=== PATIENT | male | born 1955 | race Caucasian/White ===

== ENCOUNTER 2017-09-21 03:20 | Inpatient (IN) | payer OTHER ==
[2017-09-21] VITALS (10 sets, daily range): BP systolic 111–177; BP diastolic 55–84; PULSE 53–78; RESP 18–24; TEMP 97.5–99.2; O2SAT 93–100
[~2017-09-21] VITALS: Ht 195.6 cm; Wt 205.9 kg
[~2017-09-21 03:20] MED LIST: ACET325 PO; CEREFOLIN PO; CIPR500T2 PO; HALO1 PO; KLOR20TA6 PO; LANO0.2510 PO; LOPE2 PO; LORA-392 PO; MAGNESIUM OXIDE PO; MILKSUS5 PO; RISP2TAB2 PO; RIVA9.5T TD; TAB-TAB PO; THIA200P PO; VITA500T10 PO; ZINC220 PO; [UNRECOGNIZED DRUG - CODE] PO
[2017-09-21] MEDS ORDERED: SODIUM CHLORIDE 0.9% FLUSH 10 ML FLUSH IVF PRN (03:45)
--- NOTE | 2017-09-21 03:48 | PD ---
HPI Chief Complaint: Complaint Time Seen by Provider: 03:45 Travel History International Travel<30 days: No Contact w/Intl Traveler<30days: No Traveled to known affect area: No History of Present Illness HPI 61-year-old male presents to the emergency department by EMS transport from local assisted living facility for complaint of lower extremity swelling with scrotal edema and penile edema. Patient has history of COPD atrial fibrillation morbid obesity hypertension and schizophrenia. Patient denies having history of diabetes. Patient admits to occasional alcohol use and tobacco use. Patient states that he has noted swelling in the groin area for the past week and finally mentioned it to the caregivers at his facility. Patient was sent immediately to the emergency department for further evaluation. Patient does not report any issues with urinating or having bowel movements. PFSH Past Medical History Narrative Medical Anxiety atrial fibrillation hypertension schizophrenia tobacco use occasional alcohol use; nursing notes reviewed Atrial Fibrillation: Yes Anxiety: Yes GERD: Yes Hypertension: Yes Schizophrenia: Yes Social History Alcohol Use: Yes (Occ) Tobacco Use: Yes (<1/2 PPD) Substance Use: No Allergies-Medications (Allergen,Severity, Reaction): Coded Allergies: No Known Allergies (Verified Allergy, Unknown, 09/21/17) Reported Meds & Prescriptions Reported Meds & Active Scripts Active Reported Tylenol (Acetaminophen) 325 Mg Tab 650 Mg PO Q4H PRN Aspirin 81 Mg Chew 81 Mg CHEW DAILY Milk of Magnesia Liq (Magnesium Hydroxide) 400 Mg/5 Ml Susp 60 Ml PO DAILY PRN Multivitamins (Multiple Vitamin) 1 Cap Cap 1 Tab PO DAILY Tums (Calcium Carbonate (Antacid)) 500 Mg Chew 500 Mg CHEW PRN Aplisol (Tuberculin Ppd) 5 Tub. Unit/0.1 Ml Inj Ranitidine 75 (Ranitidine HCl) 75 Mg Tab 75 Mg PO DAILY Take 30 to 60 minutes before eating food or drinking beverages that cause heartburn. Risperdal (Risperidone) 1 Mg Tab 1 Mg PO DAILY Trazodone (Trazodone HCl) 50 Mg Tab 50 Mg PO HS Wellbutrin Xl 24 HR (Bupropion HCl) 300 Mg Tab 300 Mg PO DAILY Review of Systems Except as stated in HPI: all other systems reviewed are Neg General / Constitutional: No: Fever, Chills HENT: No: Congestion Cardiovascular: No: Chest Pain or Discomfort Respiratory: Positive: Shortness of Breath Gastrointestinal: No: Vomiting, Abdominal Pain Genitourinary: Positive: Other (Scrotal and penile edema), No: Dysuria Musculoskeletal: Positive: Edema Skin: No Rash Neurologic: No: Weakness Psychiatric: Positive: Anxiety Hematologic/Lymphatic: No: Lymph Node Enlargement Physical Exam Narrative GENERAL: Morbidly obese male in no acute respiratory distress. SKIN: Warm and dry. HEAD: Normocephalic. EYES: No scleral icterus. No injection or drainage. NECK: Supple, trachea midline. No JVD or lymphadenopathy. CARDIOVASCULAR: Regular rate and rhythm without murmurs, gallops, or rubs. RESPIRATORY: Breath sounds equal bilaterally. No accessory muscle use. GASTROINTESTINAL: Abdomen soft, non-tender, nondistended. MUSCULOSKELETAL: No cyanosis, scrotal and bilateral lower extremity pitting edema with erythema increased warmth but no crepitus no eschar no ecchymosis and nontender to palpation. BACK: Nontender without obvious deformity. No CVA tenderness. Data Data Last Documented VS Vital Signs Date Time Temp Pulse Resp B/P (MAP) Pulse Ox O2 Delivery O2 Flow Rate FiO2 09/21/17 04:20 100 Room Air 09/21/17 04:20 09/21/17 03:37 18 09/21/17 03:37 98.5 74 Orders Orders Complete Blood Count With Diff (09/21/17 03:45) Comprehensive Metabolic Panel (09/21/17 03:45) B-Type Natriuretic Peptide (09/21/17 03:45) Act Partial Throm Time (Ptt) (09/21/17 03:45) Prothrombin Time / Inr (Pt) (09/21/17 03:45) Magnesium (Mg) (09/21/17 03:45) Ckmb (Isoenzyme) Profile (09/21/17 03:45) Troponin I (09/21/17 03:45) Urinalysis - C+S If Indicated (09/21/17 03:45) Blood Culture (09/21/17 03:45) Iv Access Insert/Monitor (09/21/17 03:45) Electrocardiogram (09/21/17 03:45) Ecg Monitoring (09/21/17 03:45) Oximetry (09/21/17 03:45) Oxygen Administration (09/21/17 03:45) Chest, Single Ap (09/21/17 03:45) Sodium Chloride 0.9% Flush (Ns Flush) (09/21/17 03:45) Us Leg Venous Doppler Bilat (09/21/17 ) Digoxin (09/21/17 04:04) CKMB (09/21/17 04:04) CKMB% (09/21/17 04:04) Admit To Inpatient (09/21/17 ) Vital Signs (Adult) Q4H (09/21/17 05:31) Activity Oob Ad Mamta (09/21/17 05:31) Auto Rebuilder / Telemetry .CONTINUOUS (09/21/17 05:31) Intake + Output CAREY.QSHIFT (09/21/17 05:31) Diet Heart Healthy (09/21/17 Breakfast) Sodium Chlor 0.9% 1000 Ml Inj (Ns 1000 M (09/21/17 05:31) Sodium Chloride 0.9% Flush (Ns Flush) (09/21/17 05:45) Sodium Chloride 0.9% Flush (Ns Flush) (09/21/17 09:00) Acetaminophen (Tylenol) (09/21/17 05:45) Ondansetron Inj (Zofran Inj) (09/21/17 05:45) Basic Metabolic Panel (Bmp) (09/22/17 06:00) Complete Blood Count With Diff (09/22/17 06:00) Creatine Kinase (Cpk) (09/21/17 16:00) Pt Request For Service (09/21/17 05:31) Case Management Consult (09/21/17 05:31) Naloxone Inj (Narcan Inj) (09/21/17 05:45) Inpatient Certification (09/21/17 ) Heparin Inj (Heparin Inj) (09/21/17 06:00) Echo 2d Comp With Doppler (09/21/17 ) Admit Order (Ed Use Only) (09/21/17 ) Auto Rebuilder / Telemetry CAREY.Q8H (09/21/17 05:42) Activity Bed Rest (09/21/17 05:42) Notify Dr: Other (09/21/17 05:42) Labs Laboratory Tests Test 09/21/17 04:04 09/21/17 04:14 White Blood Count 17.0 TH/MM3 Red Blood Count 4.73 MIL/MM3 Hemoglobin 13.1 GM/DL Hematocrit 39.4 % Mean Corpuscular Volume 83.3 FL Mean Corpuscular Hemoglobin 27.7 PG Mean Corpuscular Hemoglobin Concent 33.3 % Red Cell Distribution Width 15.8 % Platelet Count 300 TH/MM3 Mean Platelet Volume 8.1 FL Neutrophils (%) (Auto) 87.2 % Lymphocytes (%) (Auto) 4.6 % Monocytes (%) (Auto) 7.9 % Eosinophils (%) (Auto) 0.1 % Basophils (%) (Auto) 0.2 % Neutrophils # (Auto) 14.8 TH/MM3 Lymphocytes # (Auto) 0.8 TH/MM3 Monocytes # (Auto) 1.3 TH/MM3 Eosinophils # (Auto) 0.0 TH/MM3 Basophils # (Auto) 0.0 TH/MM3 CBC Comment DIFF FINAL Differential Comment Prothrombin Time 11.5 SEC Prothromb Time International Ratio 1.1 RATIO Activated Partial Thromboplast Time 28.8 SEC Blood Urea Nitrogen 31 MG/DL Creatinine 1.63 MG/DL Random Glucose 134 MG/DL Total Protein 7.1 GM/DL Albumin 3.0 GM/DL Calcium Level 8.5 MG/DL Magnesium Level 2.1 MG/DL Alkaline Phosphatase 96 U/L Aspartate Amino Transf (AST/SGOT) 45 U/L Alanine Aminotransferase (ALT/SGPT) 33 U/L Total Bilirubin 1.2 MG/DL Sodium Level 137 MEQ/L Potassium Level 4.2 MEQ/L Chloride Level 105 MEQ/L Carbon Dioxide Level 23.2 MEQ/L Anion Gap 9 MEQ/L Estimat Glomerular Filtration Rate 43 ML/MIN Total Creatine Kinase 1121 U/L Creatine Kinase MB 9.6 NG/ML Creatine Kinase MB % 0.9 % Troponin I LESS THAN 0.02 NG/ML B-Type Natriuretic Peptide 55 PG/ML Digoxin Level 0.1 NG/ML Urine Color YELLOW Urine Turbidity CLEAR Urine pH 5.0 Urine Specific [place] 1.021 Urine Protein NEG mg/dL Urine Glucose (UA) NEG mg/dL Urine Ketones NEG mg/dL Urine Occult Blood NEG Urine Nitrite NEG Urine Bilirubin NEG Urine Urobilinogen LESS THAN 2.0 MG/DL Urine Leukocyte Esterase NEG Urine WBC 1 /hpf Urine Squamous Epithelial Cells <1 /hpf Urine Mucus FEW /lpf Microscopic Urinalysis Comment CULT NOT INDICATED MDM Medical Decision Making Medical Screen Exam Complete: Yes Emergency Medical Condition: Yes Medical Record Reviewed: Yes Interpretation(s) EKG: Atrial fibrillation controlled ventricular rate of [address] elevation or injury pattern age-indeterminate QS anteriorly Last Impressions Chest X-Ray 09/21/17 0345 Signed Impressions: Service Date/Time: Thursday, September 21, 2017 04:03 - CONCLUSION: 1. Cardiomegaly with pulmonary vascular congestion. 2. Hazy opacity throughout the right lung may reflect layering pleural effusion. 3. Mild left lung base airspace disease, presumably atelectasis. Jonah Yu MD Lower Extremity Ultrasound 09/21/17 0000 Signed Impressions: Service Date/Time: Thursday, September 21, 2017 04:23 - CONCLUSION: 1. No sonographic evidence for lower extremity DVT. Jonah Yu MD CBC & BMP Diagram 09/21/17 04:04 Total Protein 7.1, Albumin 3.0 L, Calcium Level 8.5, Magnesium Level 2.1, Alkaline Phosphatase 96, Aspartate Amino Transf (AST/SGOT) 45 H, Alanine Aminotransferase (ALT/SGPT) 33, Total Bilirubin 1.2 H Vital Signs Date Time Temp Pulse Resp B/P (MAP) Pulse Ox O2 Delivery O2 Flow Rate FiO2 09/21/17 04:20 100 Room Air 09/21/17 04:20 100 Room Air 09/21/17 03:37 18 09/21/17 03:37 98.5 74 20 142/65 (90) 100 Room Air 09/21/17 03:33 98.5 Differential Diagnosis Scrotal edema, anasarca, phimosis, paraphimosis, cellulitis, CHF, ACS, renal failure, hypoproteinemia, anemia, DVT; no crepitus or eschar to suggest necrotizing fasciitis Narrative Course IV access obtained specimens collected and sent for resulting imaging studies ordered patient presumptively covered with Lasix diuresis; ultrasound of the lower extremities ordered; EKG is atrial fibrillation with controlled ventricular rate no acute injury pattern change noted. Patient administered broad-spectrum antibiotic after obtaining blood cultures and lactic acid Patient given vancomycin and Zosyn as well as diuresis with Lasix Patient's case discussed with medicine service for admission ongoing IV antibiotics and diuresis Critical Care Narrative Aggregate critical care time was 35 minutes. Time to perform other separately billable procedures was not included in the critical care time. My time did not include minutes spent treating any other patients simultaneously or on activities that did not directly contribute to the patient's treatment. The services I provided to this patient were to treat and/or prevent clinically significant deterioration that could result in: Myocardial infarction, septic shock, I provided critical care services requiring my management, as noted below: Chart data review, documentation time, medication orders and management, vital sign assessments/reviewing monitor data, ordering and reviewing lab tests, ordering and interpreting/reviewing x-rays and diagnostic studies, care of the patient and discussion of the patient with the admitting physicians. Physician Communication Physician Communication discussed with Dr Durham Diagnosis Primary Impression: Cellulitis of scrotum Additional Impressions: Anasarca Renal insufficiency Rhabdomyolysis Atrial fibrillation Admitting Information Admitting Physician Requests: Admit Shauna Gates MD Sep 21, 2017 03:48
[2017-09-21 04:23] LABS: AUTOMATED NEUTROPHIL # 14.8 TH/MM3 (1.8-7.7); BASOPHIL % 0.2 % (0.0-2.0); EOSINOPHIL % 0.1 % (0.0-4.0); HEMATOCRIT 39.4 % (39.0-51.0); HEMOGLOBIN 13.1 GM/DL (13.0-17.0); LYMPH % 4.6 % (9.0-44.0); LYMPHOCYTE # 0.8 TH/MM3 (1.0-4.8); MEAN CELL VOLUME 83.3 FL (80.0-100.0); MEAN CORPUSCULAR HEMOGLOBIN 27.7 PG (27.0-34.0); MEAN CORPUSCULAR HGB CONC 33.3 % (32.0-36.0); MEAN PLATELET VOLUME 8.1 FL (7.0-11.0); MONO % 7.9 % (0.0-8.0); MONOCYTE # 1.3 TH/MM3 (0-0.9); NEUT % 87.2 % (16.0-70.0); PLATELET COUNT 300 TH/MM3 (150-450); RED BLOOD COUNT 4.73 MIL/MM3 (4.50-5.90); RED CELL DISTRIBUTION WIDTH 15.8 % (11.6-17.2)
[2017-09-21 04:27] LABS: BILIRUBIN, URINE NEG (NEG); BLOOD, URINE NEG (NEG); GLUCOSE,URINE NEG (NEG); KETONE, URINE NEG (NEG); MUCUS URINE FEW /lpf (OCC); NITRITE,URINE NEG (NEG); SQUAMOUS EPITHELIAL CELL URINE <1 /hpf (0-5); URINE COLOR YELLOW (YELLW/STRAW); URINE LEUKOCYTE ESTERASE NEG (NEG)
--- NOTE | 2017-09-21 04:29 | RADRPT ---
EXAM DATE/TIME: 09/21/2017 04:03 [facility] COMPARISON: CHEST SINGLE AP, July 17, 2010, 4:52. INDICATIONS : Short of breath. MEDICAL HISTORY : None. SURGICAL HISTORY : None. ENCOUNTER: Initial ACUITY: 1 day PAIN SCORE: Non-responsive. LOCATION: Bilateral chest FINDINGS: Cardiac silhouette is enlarged. Central pulmonary vascularity is indistinct. Mild interstitial promin ence with hazy opacity in the right lung. Mild airspace CZ the left lung base. Remainder of the exam is unchanged. CONCLUSION: 1. Cardiomegaly with pulmonary vascular congestion. 2. Hazy opacity throughout the right lung may reflect layering pleural effusion. 3. Mild left lung base airspace disease, presumably atelectasis. Jonah Yu MD on September 21, 2017 at 4:27 Board Certified Radiologist. This report was verified electronically.
[2017-09-21] MEDS ORDERED: WELLTAB39 PO (04:33)
[2017-09-21] MEDS ORDERED: TYLE325T PO (04:33)
[2017-09-21] MEDS ORDERED: MILKSUS PO (04:33)
[2017-09-21] MEDS ORDERED: TUMS500C CHEW (04:33)
[2017-09-21] MEDS ORDERED: MULTCAP3 PO (04:33)
[2017-09-21] MEDS ORDERED: APLI5INJ2 (04:33)
[2017-09-21] MEDS ORDERED: TRAZ50TA12 PO (04:33)
[2017-09-21] MEDS ORDERED: ASPI-516 CHEW (04:33)
[2017-09-21] MEDS ORDERED: RISP1 PO (04:33)
[2017-09-21] MEDS ORDERED: RANI1TAB5 PO (04:33)
[2017-09-21 04:45] LABS: INTERNATIONAL NORMALIZED RATIO 1.1 RATIO; PROTHROMBIN TIME - PATIENT 11.5 SEC (9.8-11.6)
[2017-09-21 04:55] LABS: AST (GOT) 45 U/L (15-37); BICARBONATE 23.2 MEQ/L (21.0-32.0); BLOOD UREA NITROGEN 31 MG/DL (7-18); CALCIUM 8.5 MG/DL (8.5-10.1); CHLORIDE 105 MEQ/L (98-107); CREATININE 1.63 MG/DL (0.60-1.30); GLOMERULAR FILTRATION RATE 43 ML/MIN (>89); GLUCOSE,RANDOM 134 MG/DL (74-106); MAGNESIUM 2.1 MG/DL (1.5-2.5); SODIUM (NA) 137 MEQ/L (136-145)
[2017-09-21 04:56] LABS: ALT (GPT) 33 U/L (12-78)
[2017-09-21 05:10] LABS: ALKALINE PHOSPHATASE 96 U/L (45-117); DIGOXIN 0.1 NG/ML (0.8-2.0); TOTAL BILIRUBIN ADULT 1.2 MG/DL (0.2-1.0); TOTAL PROTEIN 7.1 GM/DL (6.4-8.2); TROPONIN I LESS THAN 0.02 NG/ML (0.02-0.05)
--- NOTE | 2017-09-21 05:20 | RADRPT ---
EXAM DATE/TIME: 09/21/2017 04:23 [facility] COMPARISON: No previous studies available for comparison. INDICATIONS : Bilateral leg swelling. MEDICAL HISTORY : Hypertension. Gastroesophageal reflux disease. Atrial fibrillation. Schizophrenia. Anxiety. SURGICAL HISTORY : ENCOUNTER: Initial ACUITY: 1 day PAIN SCORE: Non-responsive LOCATION: Bilateral legs. TECHNIQUE: Venous ultrasound of the left and right leg was performed from the inguinal ligament to the proximal calf. Real-time, color Doppler and spectral tracing, compression and augmentation techniques were us ed. FINDINGS: RIGHT LEG: There is normal compressibility of the deep venous system from the inguinal region to the proximal ca lf. No echogenic clot is seen in the lumen of the common femoral, femoral, popliteal, and posterior tibial veins. There is a normal response of the venous system to proximal and distal augmentation an d respiration. LEFT LEG: There is normal compressibility of the deep venous system from the inguinal region to the proximal ca lf. No echogenic clot is seen in the lumen of the common femoral, femoral, popliteal, and posterior tibial veins. There is a normal response of the venous system to proximal and distal augmentation an d respiration. CONCLUSION: 1. No sonographic evidence for lower extremity DVT. Jonah Yu MD on September 21, 2017 at 5:18 Board Certified Radiologist. This report was verified electronically.
[2017-09-21] MEDS ORDERED: SODIUM CHLORIDE 0.9% FLUSH 10 ML FLUSH IV FLUSH PRN (05:45)
[2017-09-21] MEDS ORDERED: NALOXONE HCL 0.4 MG/ML AMP IV PUSH PRN (05:45)
[2017-09-21] MEDS ORDERED: ONDANSETRON HCL 4 MG/2 ML VIAL IVP PRN (05:45)
[2017-09-21] MEDS ORDERED: ACETAMINOPHEN 325 MG TAB PO PRN (05:45)
[2017-09-21] MEDS ORDERED: FUROSEMIDE 100 MG/10 ML VIAL IV PUSH ONE (06:00)
[2017-09-21] MEDS ORDERED: VANCOMYCIN INJ 1,500 MG in SODIUM CHLORID 0.9% 500 ML INJ 500 ML IV ONE (06:00)
[2017-09-21] MEDS ORDERED: PIPERACIL-TAZO 4.5 GM PREMIX 100 ML IV ONE (06:00)
[2017-09-21] MEDS: HEPARIN SODIUM - SQ 10,000 UNITS/ML VIAL SQ SCH ×3 (06:09→22:16)
[2017-09-21] MEDS: SODIUM CHLOR 0.9% 1000 ML INJ 1,000 ML IV SCH ×2 (06:13→15:48)
[2017-09-21] MEDS: SODIUM CHLORIDE 0.9% FLUSH 10 ML FLUSH IV FLUSH SCH ×2 (09:00→22:17)
--- NOTE | 2017-09-21 14:38 | HHI.HP ---
[facility] Phys[facility] Unknown Admission Diagnosis anasarca/chf; cellulitis; atrial fibrillation Diagnoses: Chief Complaint: scrotal sweling Travel History International Travel<30 Days: No Contact w/Intl Traveler <30 Da: No Traveled to Known Affected Are: No History of Present Illness 61-year-old male with PMH of HTN, Afib, schizophrenia presents to the emergency department by EMS transport from local assisted living facility for complaint of lower extremity swelling with scrotal edema and penile edema. Patient has history of COPD atrial fibrillation morbid obesity hypertension and schizophrenia. Patient denies having history of diabetes. Patient admits to occasional alcohol use and tobacco use. Patient states that he has noted swelling in the groin area for the past week and finally mentioned it to the caregivers at his facility. Patient was sent immediately to the emergency department for further evaluation. Patient does not report any issues with urinating or having bowel movements. Patient is sleepy and is a very poor Review of Systems ROS Limitations: Clinical Condition, Poor Historian Except as stated in HPI: all other systems reviewed are Neg Past Family Social History Past Medical History Anxiety atrial fibrillation hypertension schizophrenia tobacco use occasional alcohol use; nursing notes reviewed Past Surgical History Abdominal surgery unspecified Reported Medications Last Impressions Chest X-Ray 09/21/17 0345 Signed Impressions: Service Date/Time: Thursday, September 21, 2017 04:03 - CONCLUSION: 1. Cardiomegaly with pulmonary vascular congestion. 2. Hazy opacity throughout the right lung may reflect layering pleural effusion. 3. Mild left lung base airspace disease, presumably atelectasis. Jonah Yu MD Lower Extremity Ultrasound 09/21/17 0000 Signed Impressions: Service Date/Time: Thursday, September 21, 2017 04:23 - CONCLUSION: 1. No sonographic evidence for lower extremity DVT. Jonah Yu MD Allergies: Coded Allergies: No Known Allergies (Verified Allergy, Unknown, 09/21/17) Family History Heart problems runs in family Social History Tobacco use 1/2 ppd Occasional EtOH use No illicit drug use Physical Exam Vital Signs Vital Signs Date Time Temp Pulse Resp B/P (MAP) Pulse Ox O2 Delivery O2 Flow Rate FiO2 09/21/17 12:00 99.2 75 21 113/57 (75) 95 09/21/17 09:45 98.1 78 20 122/79 (93) 98 09/21/17 09:20 09/21/17 08:38 98.4 75 24 177/84 (115) 99 2.00 09/21/17 06:15 75 18 145/79 (101) 96 2.00 09/21/17 04:20 100 Room Air 09/21/17 04:20 100 Room Air 09/21/17 03:37 18 09/21/17 03:37 98.5 74 20 142/65 (90) 100 Room Air 09/21/17 03:33 98.5 Physical Exam GENERAL: Morbidly obese male in no acute respiratory distress. SKIN: No rashes, ecchymoses or lesions. Cool and dry. Scrotal and bilateral lower extremity pitting edema with erythema increased warmth but no crepitus no eschar no ecchymosis and nontender to palpation. HEAD: Atraumatic. Normocephalic. No temporal or scalp tenderness. EYES: Pupils equal round and reactive. Extraocular motions intact. No scleral icterus. No injection or drainage. ENT: Nose without bleeding, purulent drainage or septal hematoma. Throat without erythema, tonsillar hypertrophy or exudate. Uvula midline. Airway patent. NECK: Trachea midline. No JVD or lymphadenopathy. Supple, nontender, no meningeal signs. CARDIOVASCULAR: Regular rate and rhythm without murmurs, gallops, or rubs. RESPIRATORY: Clear to auscultation. Breath sounds equal bilaterally. No wheezes , rales, or rhonchi. GASTROINTESTINAL: Abdomen soft, non-tender, nondistended. No hepato-splenomegaly , or palpable masses. No guarding. MUSCULOSKELETAL: Extremities without clubbing, cyanosis. No joint tenderness, effusion, or edema noted. No calf tenderness. Negative Homans sign bilaterally. NEUROLOGICAL: Awake and alert. Cranial nerves II through XII intact. Motor and sensory grossly within normal limits. Five out of 5 muscle strength in all muscle groups. Normal speech. Laboratory Laboratory Tests Test 09/21/17 04:04 09/21/17 04:14 09/21/17 08:35 White Blood Count 17.0 Red Blood Count 4.73 Hemoglobin 13.1 Hematocrit 39.4 Mean Corpuscular Volume 83.3 Mean Corpuscular Hemoglobin 27.7 Mean Corpuscular Hemoglobin Concent 33.3 Red Cell Distribution Width 15.8 Platelet Count 300 Mean Platelet Volume 8.1 Neutrophils (%) (Auto) 87.2 Lymphocytes (%) (Auto) 4.6 Monocytes (%) (Auto) 7.9 Eosinophils (%) (Auto) 0.1 Basophils (%) (Auto) 0.2 Neutrophils # (Auto) 14.8 Lymphocytes # (Auto) 0.8 Monocytes # (Auto) 1.3 Eosinophils # (Auto) 0.0 Basophils # (Auto) 0.0 CBC Comment DIFF FINAL Differential Comment Prothrombin Time 11.5 Prothromb Time International Ratio 1.1 Activated Partial Thromboplast Time 28.8 Blood Urea Nitrogen 31 Creatinine 1.63 Random Glucose 134 Total Protein 7.1 Albumin 3.0 Calcium Level 8.5 Magnesium Level 2.1 Alkaline Phosphatase 96 Aspartate Amino Transf (AST/SGOT) 45 Alanine Aminotransferase (ALT/SGPT) 33 Total Bilirubin 1.2 Sodium Level 137 Potassium Level 4.2 Chloride Level 105 Carbon Dioxide Level 23.2 Anion Gap 9 Estimat Glomerular Filtration Rate 43 Total Creatine Kinase 1121 Creatine Kinase MB 9.6 Creatine Kinase MB % 0.9 Troponin I LESS THAN 0.02 B-Type Natriuretic Peptide 55 Digoxin Level 0.1 Urine Color YELLOW Urine Turbidity CLEAR Urine pH 5.0 Urine Specific [place] 1.021 Urine Protein NEG Urine Glucose (UA) NEG Urine Ketones NEG Urine Occult Blood NEG Urine Nitrite NEG Urine Bilirubin NEG Urine Urobilinogen LESS THAN 2.0 Urine Leukocyte Esterase NEG Urine WBC 1 Urine Squamous Epithelial Cells <1 Urine Mucus FEW Microscopic Urinalysis Comment CULT NOT INDICATED Lactic Acid Level 0.9 Date/Time Source Procedure Growth Status 09/21/17 04:00 Blood Peripheral Aerobic Blood Culture Pending Received 09/21/17 04:00 Blood Peripheral Anaerobic Blood Culture Pending Received Result Diagram: 09/21/17 0404 09/21/174 Imaging Last Impressions Chest X-Ray 09/21/17 0345 Signed Impressions: Service Date/Time: Thursday, September 21, 2017 04:03 - CONCLUSION: 1. Cardiomegaly with pulmonary vascular congestion. 2. Hazy opacity throughout the right lung may reflect layering pleural effusion. 3. Mild left lung base airspace disease, presumably atelectasis. Jonah Yu MD Lower Extremity Ultrasound 09/21/17 0000 Signed Impressions: Service Date/Time: Thursday, September 21, 2017 04:23 - CONCLUSION: 1. No sonographic evidence for lower extremity DVT. MD Lazara Hammond VTE Risk Assessment Caprini VTE Risk Assessment: Mod/High Risk (score >= 2) Caprini Risk Assessment Model Point Value = 1 Point Value = 2 Point Value = 3 Point Value = 5 Age 41-60 Minor surgery BMI > 25 kg/m2 Swollen legs Varicose veins or History of unexplained or recurrent spontaneous Oral contraceptives or hormone replacement Sepsis (< 1 month) Serious lung disease, including pneumonia (< 1 month) Abnormal pulmonary function Acute myocardial infarction Congestive heart failure (< 1 month) History of inflammatory bowel disease Medical patient at bed rest Age 61-74 Arthroscopic surgery Major open surgery (> 45 min) Laparoscopic surgery (> 45 min) Malignancy Confined to bed (> 72 hours) Immobilizing plaster cast Central venous access Age >= 75 History of VTE Family history of VTE Factor V Leiden Prothrombin 17303H Lupus anticoagulant Anticardiolipin antibodies Elevated serum homocysteine Heparin-induced thrombocytopenia Other congenital or acquired thrombophilia Stroke (< 1 month) Elective arthroplasty Hip, pelvis, or leg fracture Acute spinal cord injury (< 1 month) Prophylaxis Regimen Total Risk Factor Score Risk Level Prophylaxis Regimen 0-1 Low Early ambulation 2 Moderate Order ONE of the following: *Sequential Compression Device (SCD) *Heparin 5000 units SQ BID 3-4 Higher Order ONE of the following medications: *Heparin 5000 units SQ TID *Enoxaparin/Lovenox 40 mg SQ daily (WT < 150 kg, CrCl > 30 mL/min) *Enoxaparin/Lovenox 30 mg SQ daily (WT < 150 kg, CrCl > 10-29 mL/min) *Enoxaparin/Lovenox 30 mg SQ BID (WT < 150 kg, CrCl > 30 mL/min) AND/OR *Sequential Compression Device (SCD) 5 or more Highest Order ONE of the following medications: *Heparin 5000 units SQ TID (Preferred with Epidurals) *Enoxaparin/Lovenox 40 mg SQ daily (WT < 150 kg, CrCl > 30 mL/min) *Enoxaparin/Lovenox 30 mg SQ daily (WT < 150 kg, CrCl > 10-29 mL/min) *Enoxaparin/Lovenox 30 mg SQ BID (WT < 150 kg, CrCl > 30 mL/min) AND *Sequential Compression Device (SCD) Assessment and Plan Assessment and Plan Cellulitis of scrotum Anasarca Renal insufficiency Rhabdomyolysis Atrial fibrillation EKG is atrial fibrillation with controlled ventricular rate no acute injury pattern change noted. Received vancomycin and Zosyn as well as diuresis with Lasix in the eD Continue vanco and zosyn IV Monitor cultures Consult wound care Need specialty bed bariatric bed Discussed with Kimberlyn from wound care Resume home meds as appropriate Discussed Condition With pt , ICU nurse, Kimberlyn form wound care Physician Certification 2 Midnight Certification Type: Admission for Inpatient Services Order for Inpatient Services The services are ordered in accordance with Medicare regulations or non- Medicare payer requirements, as applicable. In the case of services not specified as inpatient-only, they are appropriately provided as inpatient services in accordance with the 2-midnight benchmark. Estimated LOS (days): 3 days is the estimated time the patient will need to remain in the hospital, assuming treatment plan goals are met and no additional complications. Post-Hospital Plan: Not yet determined Mallory Brewer MD Sep 21, 2017 14:38
--- NOTE | 2017-09-21 16:43 | PD.WCN.NOT ---
Wound Consult Description: Consult for Wound Management of sacral per Dr Brewer Communicated with: Dr Daniella Jesus, RN Recommendation: Calazime BID and PRN to bilateral buttock DTI's with partial thickness skin loss Use only staggered disposable underpads for moisture under neath patient with 1 sheet for repositioning Additional Information: Patient seen on [facility] for wound evaluation. Patient was just moved over to the bariatric bed ordered per Dr Brewer. Patient was positioned to his right side with assistance. Bilateral buttock wounds were visualized. Left buttock wound measured 10cm x 10cm x <0.1cm with ~80% red non granulating moist tissue indicating partial thickness skin loss with ~20% deep purple non blanching discoloration noted to center of wound bed indicating DEEP TISSUE INJURY. There is no odor and no active drainage noted to this left buttock wound. Right buttock measures 9cm x 9cm x <0.1cm with ~70% red non granulating moist tissue, ~20% white thick scar tissue, and ~10% non blanching purple discoloration noted in center of wound bed. There is no odor and no active drainage noted from the right buttock wound. The sacrum and coccyx are unremarkable. Patient wounds were cleansed and left open to air until orders are obtained from physician. Patient was repositioned back onto the staggered underpads and one sheet per protocol with this type of surface. Kimberlyn Nichols [facility] Sep 21, 2017 16:43
--- NOTE | 2017-09-21 22:09 | EKG ---
Date Performed: 09/21/2017 Time Performed: 04:01:06 PTAGE: 62 years EKG: ATRIAL FIBRILLATION LOW QRS VOLTAGE IN EXTREMITY LEADS POSSIBLE ANTERIOR MYOCARDIAL INFARCT ION ABNORMAL RHYTHM ECG PREVIOUS TRACING : 07/15/2010 18.43 Since the prior tracing, there has been no significant oneil DOCTOR: Ld Gillette Interpretating Date/Time 09/21/2017 22:07:51
[2017-09-21] MEDS: NYSTATIN 100,000 UNIT/GM CREAM 15 GM TOPICAL SCH ×2 (22:16→22:22)
[2017-09-22] VITALS (8 sets, daily range): BP systolic 113–147; BP diastolic 54–66; PULSE 45–64; RESP 16–26; TEMP 97.7–98.5; O2SAT 96–100
[2017-09-22] MEDS: SODIUM CHLOR 0.9% 1000 ML INJ 1,000 ML IV SCH ×3 (03:55→21:31)
[2017-09-22 05:05] LABS: AUTOMATED NEUTROPHIL # 7.5 TH/MM3 (1.8-7.7); BASOPHIL % 0.3 % (0.0-2.0); EOSINOPHIL # 0.2 TH/MM3 (0-0.4); EOSINOPHIL % 1.6 % (0.0-4.0); HEMATOCRIT 35.9 % (39.0-51.0); LYMPH % 11.5 % (9.0-44.0); LYMPHOCYTE # 1.1 TH/MM3 (1.0-4.8); MEAN CELL VOLUME 84.5 FL (80.0-100.0); MEAN CORPUSCULAR HEMOGLOBIN 28.2 PG (27.0-34.0); MEAN CORPUSCULAR HGB CONC 33.3 % (32.0-36.0); MEAN PLATELET VOLUME 8.4 FL (7.0-11.0); MONO % 6.4 % (0.0-8.0); MONOCYTE # 0.6 TH/MM3 (0-0.9); NEUT % 80.2 % (16.0-70.0); PLATELET COUNT 242 TH/MM3 (150-450); RED BLOOD COUNT 4.25 MIL/MM3 (4.50-5.90); RED CELL DISTRIBUTION WIDTH 16.1 % (11.6-17.2); WHITE BLOOD COUNT 9.4 TH/MM3 (4.0-11.0)
[2017-09-22 05:12] LABS: BICARBONATE 27.9 MEQ/L (21.0-32.0); CALCIUM 8.3 MG/DL (8.5-10.1); CREATININE 1.23 MG/DL (0.60-1.30)
[2017-09-22] MEDS: HEPARIN SODIUM - SQ 10,000 UNITS/ML VIAL SQ SCH ×3 (05:37→23:15)
--- NOTE | 2017-09-22 07:27 | HHI.PR ---
Subjective Remarks The patient is in not acute distress, he is more awake and alert. Denies any pain at this time. No nausea vomiting no diarrhea or constipation Objective Vitals Vital Signs Date Time Temp Pulse Resp B/P (MAP) Pulse Ox O2 Delivery O2 Flow Rate FiO2 09/22/17 04:00 97.9 53 20 120/60 (80) 100 09/22/17 00:04 58 09/22/17 00:00 98.5 64 22 137/63 (87) 96 09/21/17 20:16 53 09/21/17 20:00 97.5 63 22 122/63 (82) 96 09/21/17 16:00 99.2 61 22 111/55 (73) 93 09/21/17 12:00 99.2 75 21 113/57 (75) 95 09/21/17 09:45 98.1 78 20 122/79 (93) 98 09/21/17 09:20 09/21/17 08:38 98.4 75 24 177/84 (115) 99 2.00 I/O 09/21/17 09/21/17 09/21/17 09/22/17 09/22/17 09/22/17 07:00 15:00 23:00 07:00 15:00 23:00 Intake Total 100 ml 240 ml 1240 ml Output Total 1600 ml 1300 ml 900 ml Balance 100 ml -1600 ml -1060 ml 340 ml Intake Oral 240 ml 240 ml IV Total 100 ml 1000 ml Output Urine Total 1600 ml 1300 ml 900 ml # Voids 0 Result Diagram: 09/22/17 0330 09/22/17 0330 Imaging Last Impressions Chest X-Ray 09/21/17 0345 Signed Impressions: Service Date/Time: Thursday, September 21, 2017 04:03 - CONCLUSION: 1. Cardiomegaly with pulmonary vascular congestion. 2. Hazy opacity throughout the right lung may reflect layering pleural effusion. 3. Mild left lung base airspace disease, presumably atelectasis. Jonah Yu MD Lower Extremity Ultrasound 09/21/17 0000 Signed Impressions: Service Date/Time: Thursday, September 21, 2017 04:23 - CONCLUSION: 1. No sonographic evidence for lower extremity DVT. Jonah Yu MD Objective Remarks GENERAL: Morbidly obese male in no acute respiratory distress. SKIN: No rashes, ecchymoses or lesions. Cool and dry. Scrotal and bilateral lower extremity pitting edema with erythema increased warmth but no crepitus no eschar no ecchymosis and nontender to palpation. HEAD: Atraumatic. Normocephalic. No temporal or scalp tenderness. EYES: Pupils equal round and reactive. Extraocular motions intact. No scleral icterus. No injection or drainage. ENT: Nose without bleeding, purulent drainage or septal hematoma. Throat without erythema, tonsillar hypertrophy or exudate. Uvula midline. Airway patent. NECK: Trachea midline. No JVD or lymphadenopathy. Supple, nontender, no meningeal signs. CARDIOVASCULAR: Regular rate and rhythm without murmurs, gallops, or rubs. RESPIRATORY: Clear to auscultation. Breath sounds equal bilaterally. No wheezes , rales, or rhonchi. GASTROINTESTINAL: Abdomen soft, morbidly obese, non-tender, nondistended. No hepato-splenomegaly, or palpable masses. No guarding. MUSCULOSKELETAL: Extremities without clubbing, cyanosis. No joint tenderness, effusion, or edema noted. No calf tenderness. Negative Homans sign bilaterally. NEUROLOGICAL: Awake and alert. Cranial nerves II through XII intact. Motor and sensory grossly within normal limits. Five out of 5 muscle strength in all muscle groups. Normal speech. A/P Assessment and Plan Cellulitis of scrotum Anasarca Renal insufficiency Rhabdomyolysis Atrial fibrillation EKG is atrial fibrillation with controlled ventricular rate no acute injury pattern change noted. Received vancomycin and Zosyn as well as diuresis with Lasix in the eD Continue vanco and zosyn IV Monitor cultures Consult wound care appreciate recommendations. Calazime BID and PRN to bilateral buttock DTI's with partial thickness skin loss. Use only staggered disposable underpads for moisture under neath patient with 1 sheet for repositioning Need specialty bed bariatric bed Discussed with Kimberlyn from wound care Resume home meds as appropriate Discussed Condition With pt , nurse Mallory Brewer MD Sep 22, 2017 07:27
[2017-09-22] MEDS: SODIUM CHLORIDE 0.9% FLUSH 10 ML FLUSH IV FLUSH SCH ×2 (09:27→23:17)
[2017-09-22] MEDS: NYSTATIN 100,000 UNIT/GM CREAM 15 GM TOPICAL SCH ×2 (09:27→23:17)
--- NOTE | 2017-09-22 16:54 | ECHRPT ---
Indication: AFIB FLUTTER CONCLUSIONS Technically difficult study due to body habitus Normal left ventricular size. Moderate concentric left ventricular hypertrophy. The left ventricular systolic function is normal with an estimated ejection fraction in the range of 60-65%. The right ventricle is mild to moderately dilated. very technically limited study BP: 177 / 84 HR: 75 Rhythm: Atrial fibrillation MEASUREMENTS (Male / Female) Normal Values Technical Quality:Technically difficult study 2D ECHO LV Diastolic Diameter PLAX 4.4 cm 4.2 - 5.9 / 3.9 - 5.3 cm LV Systolic Diameter PLAX 3.2 cm IVS Diastolic Thickness 1.4 cm 0.6 - 1.0 / 0.6 - 0.9 cm LVPW Diastolic Thickness 0.8 cm 0.6 - 1.0 / 0.6 - 0.9 cm LV Relative Wall Thickness 0.5 RV Internal Dim ED PLAX 3.4 cm DOPPLER Mitral E Point Velocity 89.3 cm/s Mitral A Point Velocity 64.2 cm/s Mitral E to A Ratio 1.4 TR Peak Velocity 187.0 cm/s TR Peak Gradient 14.0 mmHg FINDINGS LEFT VENTRICLE Normal left ventricular size. Moderate concentric left ventricular hypertrophy. The left ventricular systolic function is normal with an estimated ejection fraction in the range of 60-65%. RIGHT VENTRICLE The right ventricle is mild to moderately dilated. LEFT ATRIUM The left atrial size is normal. RIGHT ATRIUM The right atrial size is normal. ATRIAL SEPTUM Normal atrial septal thickness without atrial level shunting by limited color doppler interrogation. AORTA The aortic root and proximal ascending aorta are not well visualized. MITRAL VALVE The mitral valve is not well visualized. AORTIC VALVE Trileaflet aortic valve. No aortic valve stenosis or regurgitation. TRICUSPID VALVE The tricuspid valve is not well visualized. PULMONARY VALVE The pulmonary valve is not well visualized. VESSELS The inferior vena cava is normal in size. PERICARDIUM No pericardial effusion. Narendra Ortiz MD, FACC, [facility] (Electronically Signed) Final Date:22 September 2017 16:52
[2017-09-23] VITALS (7 sets, daily range): BP systolic 113–164; BP diastolic 64–74; PULSE 50–96; RESP 17–28; TEMP 97.7–98.7; O2SAT 92–100
[2017-09-23 04:04] LABS: AUTOMATED NEUTROPHIL # 5.2 TH/MM3 (1.8-7.7); BASOPHIL % 0.4 % (0.0-2.0); EOSINOPHIL # 0.2 TH/MM3 (0-0.4); EOSINOPHIL % 2.8 % (0.0-4.0); HEMATOCRIT 36.2 % (39.0-51.0); HEMOGLOBIN 11.9 GM/DL (13.0-17.0); LYMPH % 16.7 % (9.0-44.0); LYMPHOCYTE # 1.2 TH/MM3 (1.0-4.8); MEAN CELL VOLUME 84.1 FL (80.0-100.0); MEAN CORPUSCULAR HEMOGLOBIN 27.6 PG (27.0-34.0); MEAN CORPUSCULAR HGB CONC 32.9 % (32.0-36.0); MEAN PLATELET VOLUME 8.2 FL (7.0-11.0); MONO % 6.9 % (0.0-8.0); MONOCYTE # 0.5 TH/MM3 (0-0.9); NEUT % 73.2 % (16.0-70.0); PLATELET COUNT 230 TH/MM3 (150-450); WHITE BLOOD COUNT 7.1 TH/MM3 (4.0-11.0)
[2017-09-23 04:25] LABS: BICARBONATE 26.1 MEQ/L (21.0-32.0); CALCIUM 8.1 MG/DL (8.5-10.1); CREATININE 0.93 MG/DL (0.60-1.30)
[2017-09-23] MEDS: HEPARIN SODIUM - SQ 10,000 UNITS/ML VIAL SQ SCH ×3 (06:00→23:47)
--- NOTE | 2017-09-23 08:30 | HHI.PR ---
Subjective Remarks Bed, patient says he is still hungry and he wants extra tray of food . With lower extremity edema and scrotal edema. No fever or chills. No nausea vomiting or diarrhea constipation. Objective Vitals Vital Signs Date Time Temp Pulse Resp B/P (MAP) Pulse Ox O2 Delivery O2 Flow Rate FiO2 09/23/17 08:00 98.7 96 17 143/65 (91) 94 09/23/17 04:00 98.1 51 21 142/64 (90) 98 09/23/17 00:00 97.7 56 20 113/67 (82) 92 09/22/17 23:00 48 09/22/17 19:45 57 16 147/66 (93) 09/22/17 16:00 97.7 47 16 139/61 (87) 100 09/22/17 12:00 98.0 45 24 128/58 (81) 98 09/22/17 08:35 98.2 58 26 113/54 (73) 99 I/O 09/22/17 09/22/17 09/22/17 09/23/17 09/23/17 09/23/17 07:00 15:00 23:00 07:00 15:00 23:00 Intake Total 1240 ml 960 ml 0 ml Output Total 900 ml 700 ml 450 ml Balance 340 ml 260 ml -450 ml Intake Oral 240 ml 960 ml IV Total 1000 ml 0 ml Output Urine Total 900 ml 700 ml 450 ml Result Diagram: 09/23/17 0333 09/23/17 0333 Imaging Last Impressions Chest X-Ray 09/21/17 0345 Signed Impressions: Service Date/Time: Thursday, September 21, 2017 04:03 - CONCLUSION: 1. Cardiomegaly with pulmonary vascular congestion. 2. Hazy opacity throughout the right lung may reflect layering pleural effusion. 3. Mild left lung base airspace disease, presumably atelectasis. Jonah Yu MD Lower Extremity Ultrasound 09/21/17 0000 Signed Impressions: Service Date/Time: Thursday, September 21, 2017 04:23 - CONCLUSION: 1. No sonographic evidence for lower extremity DVT. Jonah Yu MD Objective Remarks GENERAL: Morbidly obese male in no acute respiratory distress. SKIN: No rashes, ecchymoses or lesions. Cool and dry. Scrotal and bilateral lower extremity pitting edema with erythema increased warmth but no crepitus no eschar no ecchymosis and nontender to palpation. HEAD: Atraumatic. Normocephalic. No temporal or scalp tenderness. EYES: Pupils equal round and reactive. Extraocular motions intact. No scleral icterus. No injection or drainage. ENT: Nose without bleeding, purulent drainage or septal hematoma. Throat without erythema, tonsillar hypertrophy or exudate. Uvula midline. Airway patent. NECK: Trachea midline. No JVD or lymphadenopathy. Supple, nontender, no meningeal signs. CARDIOVASCULAR: Regular rate and rhythm without murmurs, gallops, or rubs. RESPIRATORY: Clear to auscultation. Breath sounds equal bilaterally. No wheezes , rales, or rhonchi. GASTROINTESTINAL: Abdomen soft, morbidly obese, non-tender, nondistended. No hepato-splenomegaly, or palpable masses. No guarding. MUSCULOSKELETAL: Extremities without clubbing, cyanosis. No joint tenderness, effusion, or edema noted. No calf tenderness. Negative Homans sign bilaterally. NEUROLOGICAL: Awake and alert. Cranial nerves II through XII intact. Motor and sensory grossly within normal limits. Five out of 5 muscle strength in all muscle groups. Normal speech. A/P Assessment and Plan Cellulitis of scrotum Anasarca Renal insufficiency Rhabdomyolysis Atrial fibrillation EKG is atrial fibrillation with controlled ventricular rate no acute injury pattern change noted. Received vancomycin and Zosyn as well as diuresis with Lasix in the eD Continue vanco and zosyn IV Add Lasix, monitor kidney function closely. Monitor urine output. Monitor cultures Consult wound care appreciate recommendations. Calazime BID and PRN to bilateral buttock DTI's with partial thickness skin loss. Use only staggered disposable underpads for moisture under neath patient with 1 sheet for repositioning Specialty bed bariatric bed Discussed with Kimberlyn from wound care Resume home meds as appropriate Discussed Condition With pt , nurse Mallory Brewer MD Sep 23, 2017 08:30
[2017-09-23] MEDS: SODIUM CHLORIDE 0.9% FLUSH 10 ML FLUSH IV FLUSH SCH ×2 (10:40→23:46)
[2017-09-23] MEDS: NYSTATIN 100,000 UNIT/GM CREAM 15 GM TOPICAL SCH ×2 (10:40→23:46)
[2017-09-23] MEDS: FUROSEMIDE 20 MG TAB PO SCH (18:01)
[2017-09-24] VITALS (8 sets, daily range): BP systolic 147–166; BP diastolic 69–88; PULSE 41–55; RESP 19–24; TEMP 97.4–98.5; O2SAT 96–99
[2017-09-24] MEDS: HEPARIN SODIUM - SQ 10,000 UNITS/ML VIAL SQ SCH ×3 (06:11→20:14)
--- NOTE | 2017-09-24 07:47 | HHI.PR ---
Subjective Remarks The patient is in bed surgery. He appears to not acute distress at this time. More awake and alert. No fever chills overnight. Scrotal edema improving, lower extremity edema improved. No nausea vomiting no diarrhea or constipation. No fever or chills overnight. Objective Vitals Vital Signs Date Time Temp Pulse Resp B/P (MAP) Pulse Ox O2 Delivery O2 Flow Rate FiO2 09/24/17 04:00 97.4 44 19 162/74 (103) 98 09/24/17 00:40 98.5 50 20 147/69 (95) 97 09/23/17 23:00 50 09/23/17 20:00 98.1 53 21 159/69 (99) 100 09/23/17 16:00 97.8 59 18 164/73 (103) 98 09/23/17 12:00 97.7 58 28 164/74 (104) 99 09/23/17 08:00 98.7 96 17 143/65 (91) 94 I/O 09/23/17 09/23/17 09/23/17 09/24/17 09/24/17 09/24/17 07:00 15:00 23:00 07:00 15:00 23:00 Intake Total 0 ml 480 ml Output Total 450 ml 1 ml 800 ml 900 ml Balance -450 ml -1 ml -320 ml -900 ml Intake Oral 480 ml IV Total 0 ml Output Urine Total 450 ml 800 ml 900 ml Stool Total 1 ml # Bowel Movements 2 Result Diagram: 09/23/17 0333 09/23/17 0333 Objective Remarks GENERAL: Morbidly obese male in no acute respiratory distress. SKIN: No rashes, ecchymoses or lesions. Cool and dry. Scrotal and bilateral lower extremity pitting edema with erythema increased warmth but no crepitus no eschar no ecchymosis and nontender to palpation. HEAD: Atraumatic. Normocephalic. No temporal or scalp tenderness. EYES: Pupils equal round and reactive. Extraocular motions intact. No scleral icterus. No injection or drainage. ENT: Nose without bleeding, purulent drainage or septal hematoma. Throat without erythema, tonsillar hypertrophy or exudate. Uvula midline. Airway patent. NECK: Trachea midline. No JVD or lymphadenopathy. Supple, nontender, no meningeal signs. CARDIOVASCULAR: Regular rate and rhythm without murmurs, gallops, or rubs. RESPIRATORY: Clear to auscultation. Breath sounds equal bilaterally. No wheezes , rales, or rhonchi. GASTROINTESTINAL: Abdomen soft, morbidly obese, non-tender, nondistended. No hepato-splenomegaly, or palpable masses. No guarding. MUSCULOSKELETAL: Extremities without clubbing, cyanosis. No joint tenderness, effusion, or edema noted. No calf tenderness. Negative Homans sign bilaterally. NEUROLOGICAL: Awake and alert. Cranial nerves II through XII intact. Motor and sensory grossly within normal limits. Five out of 5 muscle strength in all muscle groups. Normal speech. A/P Assessment and Plan Cellulitis of scrotum Anasarca Renal insufficiency Rhabdomyolysis Atrial fibrillation EKG is atrial fibrillation with controlled ventricular rate no acute injury pattern change noted. Received vancomycin and Zosyn as well as diuresis with Lasix in the eD Continue vanco and zosyn IV Add Lasix, monitor kidney function closely. Monitor urine output. Monitor cultures Consult wound care appreciate recommendations. Calazime BID and PRN to bilateral buttock DTI's with partial thickness skin loss. Use only staggered disposable underpads for moisture under neath patient with 1 sheet for repositioning Specialty bed, bariatric bed Resume home meds as appropriate Discussed Condition With pt , nurse Mallory Brewer MD Sep 24, 2017 07:47
[2017-09-24] MEDS: NYSTATIN 100,000 UNIT/GM CREAM 15 GM TOPICAL SCH ×2 (08:49→20:14)
[2017-09-24] MEDS: SODIUM CHLORIDE 0.9% FLUSH 10 ML FLUSH IV FLUSH SCH ×2 (08:49→20:14)
[2017-09-24] MEDS: FUROSEMIDE 20 MG TAB PO SCH ×2 (08:49→17:40)
[2017-09-24] MEDS ORDERED: BISACODYL 10 MG SUPP RECTAL PRN (15:00)
[2017-09-24] MEDS ORDERED: SENNOSIDES 8.6 MG TAB PO PRN (15:00)
[2017-09-24] MEDS ORDERED: LORazepam 0.5 MG TAB PO PRN (15:00)
[2017-09-24] MEDS ORDERED: MAGNESIUM HYDROXIDE SUSP 30 ML CUP PO PRN (15:00)
[2017-09-24] MEDS ORDERED: NALOXONE HCL 0.4 MG/ML AMP IV PUSH PRN (15:00)
[2017-09-24] MEDS ORDERED: LACTULOSE SYRUP 20 GM/30 ML CUP PO PRN (15:00)
[2017-09-24] MEDS: DOCUSATE SODIUM 50 MG/SENNA 8.6 MG TAB PO SCH (20:14)
[2017-09-25] VITALS (9 sets, daily range): BP systolic 142–181; BP diastolic 72–86; PULSE 40–55; RESP 19–26; TEMP 97.6–98.5; O2SAT 94–100
[2017-09-25] MEDS: HEPARIN SODIUM - SQ 10,000 UNITS/ML VIAL SQ SCH ×3 (05:40→20:23)
[2017-09-25 05:54] LABS: BASOPHIL % 0.5 % (0.0-2.0); EOSINOPHIL # 0.2 TH/MM3 (0-0.4); EOSINOPHIL % 2.7 % (0.0-4.0); HEMATOCRIT 36.8 % (39.0-51.0); HEMOGLOBIN 12.2 GM/DL (13.0-17.0); LYMPHOCYTE # 1.3 TH/MM3 (1.0-4.8); MEAN CELL VOLUME 83.7 FL (80.0-100.0); MEAN CORPUSCULAR HEMOGLOBIN 27.8 PG (27.0-34.0); MEAN CORPUSCULAR HGB CONC 33.2 % (32.0-36.0); MEAN PLATELET VOLUME 8.7 FL (7.0-11.0); MONO % 7.9 % (0.0-8.0); MONOCYTE # 0.6 TH/MM3 (0-0.9); NEUT % 70.9 % (16.0-70.0); PLATELET COUNT 229 TH/MM3 (150-450); RED CELL DISTRIBUTION WIDTH 15.2 % (11.6-17.2); WHITE BLOOD COUNT 7.1 TH/MM3 (4.0-11.0)
[2017-09-25 06:18] LABS: BICARBONATE 29.1 MEQ/L (21.0-32.0); CALCIUM 8.3 MG/DL (8.5-10.1); CREATININE 0.94 MG/DL (0.60-1.30)
[2017-09-25] MEDS: SODIUM CHLORIDE 0.9% FLUSH 10 ML FLUSH IV FLUSH SCH ×2 (08:18→20:24)
[2017-09-25] MEDS: NYSTATIN 100,000 UNIT/GM CREAM 15 GM TOPICAL SCH ×2 (08:18→20:24)
[2017-09-25] MEDS: DOCUSATE SODIUM 50 MG/SENNA 8.6 MG TAB PO SCH ×2 (08:18→20:23)
[2017-09-25] MEDS: FUROSEMIDE 20 MG TAB PO SCH ×2 (08:18→17:28)
--- NOTE | 2017-09-25 10:51 | HHI.PR ---
Subjective Remarks Patient in bed. Still with significant scrotal edema , LE edema is gettign better. NO fever ro chills overnight. Patient deneis any pain at this time. He would like to do mor PT. No /v/d/c. Gets agitated at times per nurs.e Patient has a poor insight and judgement. 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 Discussed at length with the patient as he doesn have prssure ulcers, he seems o understand. Objective Vitals Vital Signs Date Time Temp Pulse Resp B/P (MAP) Pulse Ox O2 Delivery O2 Flow Rate FiO2 09/25/17 09:57 09/25/17 08:00 97.9 40 26 142/72 (95) 96 09/25/17 07:27 42 09/25/17 07:24 Room Air 09/25/17 04:00 Room Air 09/25/17 04:00 98.5 49 26 159/72 (101) 94 09/25/17 00:00 98.1 43 19 163/81 (108) 98 09/25/17 00:00 Room Air 09/24/17 20:00 41 09/24/17 19:58 97.9 51 21 166/72 (103) 98 09/24/17 19:58 Room Air 09/24/17 16:00 98.0 46 23 154/88 (110) 97 09/24/17 15:25 43 09/24/17 12:00 97.9 51 21 159/80 (106) 99 09/24/17 12:00 99 Room Air I/O 09/24/17 09/24/17 09/24/17 09/25/17 09/25/17 09/25/17 07:00 15:00 23:00 07:00 15:00 23:00 Intake Total 1200 ml 480 ml 0 ml Output Total 900 ml 2600 ml 550 ml Balance -900 ml -1400 ml -70 ml 0 ml Intake Oral 1200 ml 480 ml IV Total 0 ml Output Urine Total 900 ml 2600 ml 550 ml # Bowel Movements 1 Result Diagram: 09/25/17 0424 09/25/17 0424 Imaging Last Impressions Chest X-Ray 09/21/17 034 Signed Impressions: Service Date/Time: Thursday, September 21, 2017 04:03 - CONCLUSION: 1. Cardiomegaly with pulmonary vascular congestion. 2. Hazy opacity throughout the right lung may reflect layering pleural effusion. 3. Mild left lung base airspace disease, presumably atelectasis. Jonah Yu MD Lower Extremity Ultrasound 09/21/17 0000 Signed Impressions: Service Date/Time: Thursday, September 21, 2017 04:23 - CONCLUSION: 1. No sonographic evidence for lower extremity DVT. Jonah Yu MD Objective Remarks GENERAL: Morbidly obese male in no acute respiratory distress. SKIN: No rashes, ecchymoses or lesions. Cool and dry. Scrotal and bilateral lower extremity pitting edema with erythema increased warmth but no crepitus no eschar no ecchymosis and nontender to palpation. HEAD: Atraumatic. Normocephalic. No temporal or scalp tenderness. EYES: Pupils equal round and reactive. Extraocular motions intact. No scleral icterus. No injection or drainage. ENT: Nose without bleeding, purulent drainage or septal hematoma. Throat without erythema, tonsillar hypertrophy or exudate. Uvula midline. Airway patent. NECK: Trachea midline. No JVD or lymphadenopathy. Supple, nontender, no meningeal signs. CARDIOVASCULAR: Regular rate and rhythm without murmurs, gallops, or rubs. RESPIRATORY: Clear to auscultation. Breath sounds equal bilaterally. No wheezes , rales, or rhonchi. GASTROINTESTINAL: Abdomen soft, morbidly obese, non-tender, nondistended. No hepato-splenomegaly, or palpable masses. No guarding. MUSCULOSKELETAL: Extremities without clubbing, cyanosis. No joint tenderness, effusion, or edema noted. No calf tenderness. Negative Homans sign bilaterally. NEUROLOGICAL: Awake and alert. Cranial nerves II through XII intact. Motor and sensory grossly within normal limits. Five out of 5 muscle strength in all muscle groups. Normal speech. A/P Assessment and Plan Cellulitis of scrotum Anasarca Renal insufficiency Rhabdomyolysis Atrial fibrillation EKG is atrial fibrillation with controlled ventricular rate no acute injury pattern change noted. Received vancomycin and Zosyn as well as diuresis with Lasix in the eD Continue vanco and zosyn IV Add Lasix, monitor kidney function closely. Monitor urine output. Monitor cultures so far negative. Consult wound care appreciate recommendations. Calazime BID and PRN to bilateral buttock DTI's with partial thickness skin loss. Use only staggered disposable underpads for moisture under neath patient with 1 sheet for repositioning Specialty bed, bariatric bed . Resume home meds as appropriate Discussed Condition With pt , nurse Mallory Brewer MD Sep 25, 2017 10:51
[2017-09-26 00:03] VITALS: BP 188/85; PULSE 40; RESP 24; TEMP 97.7; O2SAT 93
[2017-09-26 04:30] VITALS: BP_SYST 158; BP_SYST 182; BP_DIAS 72; BP_DIAS 88; PULSE 48; RESP 24; TEMP 98.2; O2SAT 94
[2017-09-26] MEDS: HEPARIN SODIUM - SQ 10,000 UNITS/ML VIAL SQ SCH ×2 (05:27→13:56)
[2017-09-26 07:39] VITALS: BP 128/87; PULSE 52; RESP 16; TEMP 97.9; O2SAT 94
[2017-09-26] MEDS: DOCUSATE SODIUM 50 MG/SENNA 8.6 MG TAB PO SCH (07:56)
[2017-09-26] MEDS: NYSTATIN 100,000 UNIT/GM CREAM 15 GM TOPICAL SCH (07:56)
[2017-09-26] MEDS: SODIUM CHLORIDE 0.9% FLUSH 10 ML FLUSH IV FLUSH SCH (07:56)
[2017-09-26] MEDS: FUROSEMIDE 20 MG TAB PO SCH (07:56)
[2017-09-26] MEDS ORDERED: FURO40TA PO (08:02)
[2017-09-26] MEDS ORDERED: NYST15T TOPICAL (08:02)
--- NOTE | 2017-09-26 08:02 | HHI.DS ---
Discharge Summary Admission Date Sep 21, 2017 at 05:46 Discharge Date: Sep 26, 2017 Admitting Diagnosis anasarca/chf; cellulitis; atrial fibrillation (1) Atrial fibrillation ICD Code: I48.91 - Unspecified atrial fibrillation Status: Acute (2) Anasarca ICD Code: R60.1 - Generalized edema Status: Acute (3) Renal insufficiency ICD Code: N28.9 - Disorder of kidney and ureter, unspecified Status: Acute (4) Rhabdomyolysis ICD Code: M62.82 - Rhabdomyolysis Status: Acute (5) Edema of scrotum ICD Code: N50.89 - Other specified disorders of the male genital organs Procedures none Brief History - From Admission 61-year-old male with PMH of HTN, Afib, schizophrenia presents to the emergency department by EMS transport from local assisted living facility for complaint of lower extremity swelling with scrotal edema and penile edema. Patient has history of COPD atrial fibrillation morbid obesity hypertension and schizophrenia. Patient denies having history of diabetes. Patient admits to occasional alcohol use and tobacco use. Patient states that he has noted swelling in the groin area for the past week and finally mentioned it to the caregivers at his facility. Patient was sent immediately to the emergency department for further evaluation. Patient does not report any issues with urinating or having bowel movements. Patient is sleepy and is a very poor CBC/BMP: 09/25/17 0424 09/25/17 0424 Significant Findings Laboratory Tests Test 09/25/17 04:24 Red Blood Count 4.40 MIL/MM3 (4.50-5.90) Hemoglobin 12.2 GM/DL (13.0-17.0) Hematocrit 36.8 % (39.0-51.0) Neutrophils (%) (Auto) 70.9 % (16.0-70.0) Calcium Level 8.3 MG/DL (8.5-10.1) Chloride Level 108 MEQ/L (98-107) Estimat Glomerular Filtration Rate 81 ML/MIN (>89) Imaging Last Impressions Chest X-Ray 09/21/17 0345 Signed Impressions: Service Date/Time: Thursday, September 21, 2017 04:03 - CONCLUSION: 1. Cardiomegaly with pulmonary vascular congestion. 2. Hazy opacity throughout the right lung may reflect layering pleural effusion. 3. Mild left lung base airspace disease, presumably atelectasis. Jonah Yu MD Lower Extremity Ultrasound 09/21/17 0000 Signed Impressions: Service Date/Time: Thursday, September 21, 2017 04:23 - CONCLUSION: 1. No sonographic evidence for lower extremity DVT. Jonah Yu MD PE at Discharge GENERAL: Morbidly obese male in no acute respiratory distress. SKIN: No rashes, ecchymoses or lesions. Cool and dry. Scrotal and bilateral lower extremity pitting edema with erythema increased warmth but no crepitus no eschar no ecchymosis and nontender to palpation. HEAD: Atraumatic. Normocephalic. No temporal or scalp tenderness. EYES: Pupils equal round and reactive. Extraocular motions intact. No scleral icterus. No injection or drainage. ENT: Nose without bleeding, purulent drainage or septal hematoma. Throat without erythema, tonsillar hypertrophy or exudate. Uvula midline. Airway patent. NECK: Trachea midline. No JVD or lymphadenopathy. Supple, nontender, no meningeal signs. CARDIOVASCULAR: Regular rate and rhythm without murmurs, gallops, or rubs. RESPIRATORY: Clear to auscultation. Breath sounds equal bilaterally. No wheezes , rales, or rhonchi. GASTROINTESTINAL: Abdomen soft, morbidly obese, non-tender, nondistended. No hepato-splenomegaly, or palpable masses. No guarding. MUSCULOSKELETAL: Extremities without clubbing, cyanosis. No joint tenderness, effusion, or edema noted. No calf tenderness. Negative Homans sign bilaterally. NEUROLOGICAL: Awake and alert. Cranial nerves II through XII intact. Motor and sensory grossly within normal limits. Five out of 5 muscle strength in all muscle groups. Normal speech. Hospital Course Scrotal edema Anasarca Renal insufficiency Rhabdomyolysis Atrial fibrillation EKG is atrial fibrillation with controlled ventricular rate no acute injury pattern change noted. Received vancomycin and Zosyn as well as diuresis with Lasix in the eD DC vanco and zosyn IV no signs of infection. Blood cultures negative Add Lasix, monitor kidney function closely. Monitor urine output. UA negative Monitor cultures so far negative. Consult wound care appreciate recommendations. Calazime BID and PRN to bilateral buttock DTI's with partial thickness skin loss. Use only staggered disposable underpads for moisture under neath patient with 1 sheet for repositioning Specialty bed, bariatric bed . Resume home meds as appropriate Discussed Condition With pt , nurse Improved. PT recommends rehab. DC to rehab in stable condition to follow up as OP with PCP and consultants. Pt Condition on Discharge: Stable Discharge Disposition: Discharge to SNF Discharge Time: > 30 minutes Discharge Instructions DIET: Follow Instructions for: Heart Healthy Diet Activities you can perform: Regular-No Restrictions Follow up Referrals: PCP Follow-up - 2-3 Days New Medications: Furosemide (Furosemide) 40 Mg Tab 40 MG PO DAILY for edema , #30 TAB 0 Refills Sulfamethoxazole-Trimethoprim (Bactrim DS) 800-160 Mg Tab 1 TAB PO BID for Infection, #20 TAB 0 Refills Nystatin Topical (Nystatin Topical) 100,000 unit/gm Cream 1 APPLIC TOPICAL Q12HR for cutaneous candidiasis for 14 Days, #1 TUBE Continued Medications: Acetaminophen (Tylenol) 325 Mg Tab 650 MG PO Q4H PRN for TEMPERATURE > 100 F, TAB 0 Refills Aspirin (Aspirin) 81 Mg Chew 81 MG CHEW DAILY, TAB 0 Refills Bupropion HCl ER 24 HR (Wellbutrin Xl 24 HR) 300 Mg Tab 300 MG PO DAILY for Control Depression, TAB 0 Refills Calcium Carbonate (Antacid) (Tums) 500 Mg Chew 500 MG CHEW PRN for HEARTBURN, TAB 0 Refills Magnesium Hydroxide Liq (Milk of Magnesia Liq) 400 Mg/5 Ml Susp 60 ML PO DAILY PRN for INDIGESTION OR UPSET STOMACH, #1 BOTTLE 0 Refills Multiple Vitamin (Multivitamins) 1 Cap Cap 1 TAB PO DAILY Ranitidine (Ranitidine 75) 75 Mg Tab 75 MG PO DAILY for Heartburn, TAB 0 Refills Take 30 to 60 minutes before eating food or drinking beverages that cause heartburn. Risperidone (Risperdal) 1 Mg Tab 1 MG PO DAILY, #30 TAB 0 Refills Trazodone (Trazodone) 50 Mg Tab 50 MG PO HS for Control Depression, #30 TAB 0 Refills Tuberculin Ppd (Aplisol) 5 Tub. Unit/0.1 Ml Inj Mallory Brewer MD Sep 26, 2017 08:02
--- NOTE | 2017-09-26 11:30 | HHI.PR ---
Subjective Remarks In bed. Lower extremity edema improved, scrotal edema improved. Remove Johnson. Denies any fever or chills. No shortness of breath. He is saturating well on room air at this time. No fever or chills PT recommends rehab Objective Vitals Vital Signs Date Time Temp Pulse Resp B/P (MAP) Pulse Ox O2 Delivery O2 Flow Rate FiO2 09/26/17 07:39 97.9 52 16 128/87 (101) 94 09/26/17 04:30 158/72 (100) 09/26/17 04:30 98.2 48 24 182/88 (119) 94 09/26/17 00:03 97.7 40 24 188/85 (119) 93 09/25/17 20:06 97.6 55 22 181/80 (113) 100 09/25/17 20:00 45 09/25/17 17:38 09/25/17 16:00 98.3 46 22 173/76 (108) 100 09/25/17 15:32 48 09/25/17 14:11 09/25/17 12:00 98.3 52 23 179/86 (117) 96 I/O 09/25/17 09/25/17 09/25/17 09/26/17 09/26/17 09/26/17 07:00 15:00 23:00 07:00 15:00 23:00 Intake Total 480 ml 0 ml 1560 ml Output Total 550 ml 4100 ml 1800 ml Balance -70 ml 0 ml -2540 ml -1800 ml Intake Oral 480 ml 1560 ml IV Total 0 ml Output Urine Total 550 ml 4100 ml 1800 ml # Bowel Movements 1 Result Diagram: 09/25/17 0424 09/25/17 0424 Imaging Last Impressions Chest X-Ray 09/21/17 0345 Signed Impressions: Service Date/Time: Thursday, September 21, 2017 04:03 - CONCLUSION: 1. Cardiomegaly with pulmonary vascular congestion. 2. Hazy opacity throughout the right lung may reflect layering pleural effusion. 3. Mild left lung base airspace disease, presumably atelectasis. Jonah Yu MD Lower Extremity Ultrasound 09/21/17 0000 Signed Impressions: Service Date/Time: Thursday, September 21, 2017 04:23 - CONCLUSION: 1. No sonographic evidence for lower extremity DVT. Jonah Yu MD Objective Remarks GENERAL: Morbidly obese male in no acute respiratory distress. SKIN: No rashes, ecchymoses or lesions. Cool and dry. Scrotal and bilateral lower extremity pitting edema with erythema increased warmth but no crepitus no eschar no ecchymosis and nontender to palpation. HEAD: Atraumatic. Normocephalic. No temporal or scalp tenderness. EYES: Pupils equal round and reactive. Extraocular motions intact. No scleral icterus. No injection or drainage. ENT: Nose without bleeding, purulent drainage or septal hematoma. Throat without erythema, tonsillar hypertrophy or exudate. Uvula midline. Airway patent. NECK: Trachea midline. No JVD or lymphadenopathy. Supple, nontender, no meningeal signs. CARDIOVASCULAR: Regular rate and rhythm without murmurs, gallops, or rubs. RESPIRATORY: Clear to auscultation. Breath sounds equal bilaterally. No wheezes , rales, or rhonchi. GASTROINTESTINAL: Abdomen soft, morbidly obese, non-tender, nondistended. No hepato-splenomegaly, or palpable masses. No guarding. MUSCULOSKELETAL: Extremities without clubbing, cyanosis. No joint tenderness, effusion, or edema noted. No calf tenderness. Negative Homans sign bilaterally. NEUROLOGICAL: Awake and alert. Cranial nerves II through XII intact. Motor and sensory grossly within normal limits. Five out of 5 muscle strength in all muscle groups. Normal speech. A/P Assessment and Plan Scrotal edema Anasarca Renal insufficiency Rhabdomyolysis Atrial fibrillation EKG is atrial fibrillation with controlled ventricular rate no acute injury pattern change noted. Received vancomycin and Zosyn as well as diuresis with Lasix in the eD DC vanco and zosyn IV no signs of infection. Blood cultures negative Add Lasix, monitor kidney function closely. Monitor urine output. UA negative Monitor cultures so far negative. Consult wound care appreciate recommendations. Calazime BID and PRN to bilateral buttock DTI's with partial thickness skin loss. Use only staggered disposable underpads for moisture under neath patient with 1 sheet for repositioning Specialty bed, bariatric bed . Resume home meds as appropriate Discussed Condition With pt , nurse Mallory Brewer MD Sep 26, 2017 11:30
[2017-09-26 11:49] VITALS: BP 142/85; PULSE 65; RESP 20; TEMP 98.6; O2SAT 100
[2017-09-26] MEDS ORDERED: BACT800T5 PO (14:57)
== END 2017-09-26 17:36 | DRG 728 ==
LOC: NEPC 03:20 → NEDA 05:46 → N03B 09:40
PROVIDERS: ADMIT Hospitalist; ATTEND Hospitalist
DX: N49.2 Inflammatory disorders of scrotum (principal); L89.310 Pressure ulcer of right buttock, unstageable; M62.82 Rhabdomyolysis; I11.0 Hypertensive heart disease with heart failure; Z68.43 Body mass index [BMI] 50.0-59.9, adult; I50.9 Heart failure, unspecified; E66.01 Morbid (severe) obesity due to excess calories; L89.320 Pressure ulcer of left buttock, unstageable; I48.91 Unspecified atrial fibrillation; F20.9 Schizophrenia, unspecified; J44.9 Chronic obstructive pulmonary disease, unspecified; N48.89 Other specified disorders of penis; N28.9 Disorder of kidney and ureter, unspecified; F17.210 Nicotine dependence, cigarettes, uncomplicated; K21.9 Gastro-esophageal reflux disease without esophagitis; F41.9 Anxiety disorder, unspecified; R60.1 Generalized edema
CPT/HCPCS: 71045; 80048; 80053; 80162; 81001; 82550; 82552; 83605; 83735; 83880; 84484; 85025; 85610; 85730; 87040; 93005; 93306; 93970; J1644; J1940; J2543; J3370; J7030; J7040